=== PATIENT | male | born 1980 | race Caucasian/White ===

== ENCOUNTER 2024-11-27 07:54 | Emergency (ER) | payer MEDICAID ==
[~2024-11-27] VITALS: Ht 180.3 cm; Wt 82.4 kg
[2024-11-27 08:01] VITALS: BP 126/85; PULSE 67; RESP 16; TEMP 96.6; O2SAT 99
--- NOTE | 2024-11-27 08:12 | Physician Documentation ---
History of Present Illness General Chief Complaint: See Chief Complaint Stated Complaint: SUPPLIES REQUEST Time Seen by MD: 08:05 History of Present Illness Initial Comments The patient is a 44-year-old male with a ileostomy placed at [facility] five years ago. It is leaking and he is requesting another ileostomy bag. He has no other complaints. Review of Systems ROS Constitutional: Denies chills, fatigue, fever, weight gain or weight loss. HEENT: Denies hearing loss, sinus pressure or visual changes. Respiratory: Denies cough, shortness of breath or wheezing. Cardiovascular: Denies chest pain, pain while walking (claudication), edema or palpitations. Gastrointestinal: Denies abdominal pain, blood in stool, constipation, di arrhea, heartburn, loss of appetite, nausea or vomiting. Genitourinary: Denies painful urination (dysuria), excessive amount of urine (polyuria) or urinary frequency. Metabolic/Endocrine: Denies cold intolerance, heat intolerance, excessive thirst (polydipsia) or excessive hunger (polyphagia). Neurological: Denies dizziness, extremity numbness, extremity weakness, headaches, seizures or tremors. Psychiatric: Denies anxiety or depression. Integumentary: Denies breast discharge, breast lump, hives, mole change(s), rash or skin lesion. Musculoskeletal: Denies back pain, joint pain, joint swelling or neck pain. Hematologic: Denies easily bleeding, easily bruises, lymphedema or issues with blood clots. Immunologic: Denies food allergies or seasonal allergies. Physical Exam Physical Exam Vital Signs: Temperature: 96.6, Source: Temporal, Heart Rate: 67, Respiratory Rate: 16, BP: 126/85, Pulse Oximetry: 99, Weight: 82.400 Oxygen Flow Rate: 0 Physical Exam Physical Exam Vitals and nursing note reviewed. Constitutional: General: Patient is awake, alert, oriented x 4 in no acute distress and well appearing. Speech is clear and lucid. Appearance: Normal appearance. Patient is not ill-appearing, toxic-appearing or diaphoretic. HENT: Head: Normocephalic and atraumatic. Mouth/Throat: Mouth: Mucous membranes are moist. Pharynx: Oropharynx is clear. Eyes: General: No scleral icterus. Extraocular Movements: Extraocular movements intact. Pupils: Pupils are equal, round, and reactive to light. Neck: Supple, no Kernig or Brudzinski sign. Cardiovascular: Rate and Rhythm: Normal rate and regular rhythm. Heart sounds: No murmur heard. Pulmonary: Effort: No respiratory distress. Breath sounds: No wheezing, rhonchi or rales. Abdominal: General: Leaking ileostomy bag present, no inflammation or evidence of infection. Palpations: There is no fluid wave, hepatomegaly or mass. Tenderness: There is no abdominal tenderness. There is no guarding. Musculoskeletal: General: No swelling or deformity. Skin: Coloration: Skin is not jaundiced. Findings: No erythema or rash. Neurological: Mental Status: Patient is alert. Progress Results/Orders Results/Orders Vital Signs 11/27/24 08:01 Temp 96.6 Pulse 67 Resp 16 B/P (MAP) 126/85 Pulse Ox 99 O2 Flow Rate 0 Medical Decision Making Findings The patient presents with a leaking ileostomy bag and be provided a new one. Departure Disposition: HOME / SELF CARE / HOMELESS Impression: Primary Impression: Ileostomy bag changed Condition: Stable Referrals: NO PRIMARY CARE PROVIDER (PCP) Education Educated: Patient Educated regarding: need for follow up Signature Scribe Signature: . Attestation: . DAVION WEBBER MD Nov 27, 2024 08:12
== END 2024-11-27 09:30 | disposition home or self-care (01) ==
LOC: ER 07:55
DX: Z43.3 Encounter for attention to colostomy (principal)
CPT/HCPCS: 99281; A4371; A4421